=== PATIENT | male | born 1985 | race Caucasian/White ===

== ENCOUNTER → 2017-08-09 | Day surgery (SDC) | payer OTHER ==
--- NOTE | 2017-08-09 15:23 | RADIOLOGY REPORT (SQ) ---
EXAM DESCRIPTION: ARTHRO SHOULDER INJECTION; FLUORO/NEEDLE PLACEMENT COMPLETED DATE/TIME: 08/09/2017 2:26 pm REASON FOR STUDY: LEFT SHOULDER PAIN (M25.512) M25.512 PAIN IN LEFT SHOULDER COMPARISON: None. FLUOROSCOPY TIME: 8 seconds 2 digital radiographic images saved to PACS. LIMITATIONS: None. PROCEDURE: Procedure, risks, benefits and alternative explained to patient who then gave written con sent. The posterior left shoulder was marked and a time-out was called for correct marking verificat ion. Posterior entry site marked using fluoroscopic guidance. Shoulder prepped and draped using kalpana rile technique. Local anesthesia achieved using 5 mL of 1% lidocaine injection. 22 gauge spinal need le introduced into the joint space under direct fluoroscopic visualization. Non-ionic contrast insti lled to confirm intra-articular position. Additional dilute non-ionic contrast instilled. Needle re moved and entry site covered with sterile bandage. No immediate complications noted. TECHNIQUE: Digital images acquired during fluoroscopy and stored on PACS. Patient immediately take n to the CT suite for additional imaging. INJECTION LOCATION: Posterior left glenohumeral joint CONTRAST TYPE AND AMOUNT: 1 mL of Isovue-300 was injected to confirm intra-articular needle placement followed by 10 mL of dilute Isovue-[address] arthrogram. IMPRESSION: SUCCESSFUL NEEDLE PLACEMENT AND INJECTION FOR LEFT SHOULDER CT ARTHROGRAM USING POSTERIO R APPROACH. COMMENT: Quality ID 145: Final reports for procedures using fluoroscopy that document radiation exp osure indices, or exposure time and number of fluorographic images (if radiation exposure indices are not available) TECHNICAL DOCUMENTATION: JOB ID: [id number] [employer]- All Rights Reserved Reading location - IP/workstation name: [email or web address]
--- NOTE | 2017-08-09 15:23 | RADIOLOGY REPORT (SQ) ---
EXAM DESCRIPTION: ARTHRO SHOULDER INJECTION; FLUORO/NEEDLE PLACEMENT COMPLETED DATE/TIME: 08/09/2017 2:26 pm REASON FOR STUDY: LEFT SHOULDER PAIN (M25.512) M25.512 PAIN IN LEFT SHOULDER COMPARISON: None. FLUOROSCOPY TIME: 8 seconds 2 digital radiographic images saved to PACS. LIMITATIONS: None. PROCEDURE: Procedure, risks, benefits and alternative explained to patient who then gave written con sent. The posterior left shoulder was marked and a time-out was called for correct marking verificat ion. Posterior entry site marked using fluoroscopic guidance. Shoulder prepped and draped using kalpana rile technique. Local anesthesia achieved using 5 mL of 1% lidocaine injection. 22 gauge spinal need le introduced into the joint space under direct fluoroscopic visualization. Non-ionic contrast insti lled to confirm intra-articular position. Additional dilute non-ionic contrast instilled. Needle re moved and entry site covered with sterile bandage. No immediate complications noted. TECHNIQUE: Digital images acquired during fluoroscopy and stored on PACS. Patient immediately take n to the CT suite for additional imaging. INJECTION LOCATION: Posterior left glenohumeral joint CONTRAST TYPE AND AMOUNT: 1 mL of Isovue-300 was injected to confirm intra-articular needle placement followed by 10 mL of dilute Isovue-[address] arthrogram. IMPRESSION: SUCCESSFUL NEEDLE PLACEMENT AND INJECTION FOR LEFT SHOULDER CT ARTHROGRAM USING POSTERIO R APPROACH. COMMENT: Quality ID 145: Final reports for procedures using fluoroscopy that document radiation exp osure indices, or exposure time and number of fluorographic images (if radiation exposure indices are not available) TECHNICAL DOCUMENTATION: JOB ID: [id number] [employer]- All Rights Reserved Reading location - IP/workstation name: [email or web address]
--- NOTE | 2017-08-10 07:51 | RADIOLOGY REPORT (SQ) ---
EXAM DESCRIPTION: CT LT UPPER EXTREMITY WITH COMPLETED DATE/TIME: 08/09/2017 2:29 pm REASON FOR STUDY: LEFT SHOULDER PAIN (M25.512) M25.512 PAIN IN LEFT SHOULDER COMPARISON: None. TECHNIQUE: Axial imaging performed through the leftshoulder with reformatted oblique coronal and obl ique sagittal imaging windowed for bone and soft tissues. All CT scanners at this facility use dose modulation, iterative reconstruction, and/or weight based d osing when appropriate to reduce radiation dose to as low as reasonably achievable (ALARA). [facility]: Dose Right [facility]: CareDose [facility]: Dose Right [facility]: Teradose 4D [facility]: Blossom RADIATION DOSE: CT Rad equipment meets quality standard of care and radiation dose reduction techniq ues were employed. CTDIvol: 16.9 mGy. DLP: 408 mGy-cm. mGy. LIMITATIONS: None. FINDINGS: SOFT TISSUES: Normal BONY ARCHITECTURE: No fracture. No lytic or blastic lesions. GLENOHUMERAL JOINT: No significant chondromalacia. Normal alignment. ACROMION AND AC JOINT: Type [address] bony spurring at the AC joint. Minimal narrowing of t he subacromial space on sagittal reconstruction image 53. ROTATOR CUFF: Normal thickness. No rotator cuff muscle atrophy. GLENOID, LABRUM AND BICEPS: Intra-articular long head biceps tendon is intact. No gross labral tear at the long head biceps tendon attachment. No paralabral cysts. OTHER: No other significant finding. IMPRESSION: Mild acromioclavicular joint bony spurring with minimal narrowing of the subacromial spa ce. No evidence of full-thickness rotator cuff tear. No rotator cuff muscle atrophy. No CT arthrogram evidence of long head biceps tendon tear or superior labral tear. TECHNICAL DOCUMENTATION: JOB ID: [id number] Quality ID # [id number]: Final reports with documentation of one or more dose reduction techniques (e.g., Au tomated exposure control, adjustment of the mA and/or kV according to patient size, use of iterative reconstruction technique) 2010 [employer]- All Rights Reserved Reading location - IP/workstation name: [email or web address]
== END ==
LOC: RAD 07-24 14:44 → EDSTATUS 07-24 15:00 → RAD 13:38
PROVIDERS: ATTEND Orthopaedic Surgery
DX: M25.512 Pain in left shoulder (principal)
CPT/HCPCS: 23350; 77002